=== PATIENT | female | born 1980 | race Caucasian/White ===

== ENCOUNTER 2019-10-29 15:15 | Emergency (ER) | payer OTHER, SELFPAY ==
[2019-10-29 15:26] VITALS: BP 139/96; PULSE 84; RESP 18; TEMP 36.6; O2SAT 98
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
[2019-10-29 16:00] LABS: Basophils Percent Auto 0.4 % (0.2-1.2); Eosinophils Absolute Auto 0.4 K/mm3 (0-0.3); Eosinophils Percent Auto 4.6 % (0-4.4); Hematocrit 41.5 % (37.0-47.0); Hemoglobin 13.3 g/dL (12.0-15.0); Immature Granulocyte Absolute 0.02 K/mm3 (0.00-0.031); Immature Granulocyte Percent A 0.2 % (0-0.5); Lymphocytes Absolute Auto 1.98 K/mm3 (0.9-3.2); Lymphocytes Percent Auto 24.5 % (18.3-44.2); Mean Corpuscular Hemoglobin 28.8 pg (26-34); Mean Corpuscular Volume 89.8 fl (80-100); Mean Platelet Volume 9.9 fl (7.4-10.4); Monocytes Absolute Auto 0.8 K/mm3 (0.1-0.6); Monocytes Percent Auto 9.3 % (2.6-8.5); Neutrophils Absolute Auto 4.9 K/mm3 (1.3-6.7); Platelet Count Result 303 k/mm3 (150-375); Red Blood Count 4.62 M/mm3 (4.2-5.4); Red Cell Distribution Width 14.7 % (11.5-14.5); White Blood Count 8.1 K/mm3 (4.5-10.0)
[2019-10-29 16:12] LABS: Alanine Aminotransferase 14 U/L (4-35); Albumin Level 4.3 g/dL (3.5-5.1); Alkaline Phosphatase 76 U/L (38-126); Aspartate Amino Transferase 28 U/L (14-36); Bilirubin,Total 0.3 mg/dL (0.2-1.3); Blood Urea Nitrogen 12 mg/dL (7-17); Calcium 9.2 mg/dL (8.4-10.2); Carbon Dioxide 29 mmol/L (22-30); Chloride 105 mmol/L (98-107); Estimated CRCL calculation 71 ml/min; Estimated Glomerular Filt Rate > 60; Ethanol < 10 mg/dL (<10); Glucose 83 mg/dL (65-105); Potassium 3.9 mmol/L (3.4-5.0); Sodium 139 mmol/L (137-145)
[2019-10-29 16:20] LABS: Add Urine Microscopic? YES; Appearance Urine Cloudy (Clear); Bilirubin Urine Negative (Negative); Blood Urine Negative (Negative); Color Urine Yellow (Yellow); Glucose Urine UA Negative (Negative); Ketones Urine Negative (Negative); Leukocyte Esterase Ur Trace LEU/UL (Negative); Mucus Urine Rare /lpf; Nitrate Urine Negative (Negative); Protein Urine Negative (Negative); Specific Grav Ur 1.017 (1.001-1.035); Squamous Epithelial Cell Urine Occasional /hpf (Few); Urobilinogen Urine Negative mg/dL (<2.0)
[2019-10-29] MEDS: SODIUM CHLORIDE 0.9% IV 1,000 ML 999 ML IV CONT (16:23)
[2019-10-29 16:27] LABS: Amphetamine Screen Urine Negative (Negative); Barbiturate Screen Urine Negative (Negative); Benzodiazepines Screen Urine Positive (Negative); Cannabinoid Screen Urine Positive (Negative); Cocaine Screen Urine Positive (Negative); Methadone Screen Urine Negative (Negative); Opiate Screen Urine Negative (Negative); Phencyclidine Screen Urine Negative (Negative)
[2019-10-29] MEDS: METOCLOPRAMIDE HCL INJ 10 MG/2 ML VIAL IV PUSH (16:27)
[2019-10-29] MEDS: KETOROLAC 30 MG/ML VIAL (*BKC) IV PUSH (16:29)
[2019-10-29 16:43] LABS: Thyroid Stimulating Hormone 0.978 uIU/mL (0.465-4.680)
--- NOTE | 2019-10-29 16:50 | PC.NURSE ---
Placed meal order at this time.
[2019-10-29 17:14] VITALS: TEMP 36.6
[2019-10-29 17:50] VITALS: BP 115/69; PULSE 62; RESP 18; O2SAT 100
[2019-10-29 20:51] VITALS: BP 118/67; PULSE 59; RESP 18; TEMP 36.5; O2SAT 98
--- NOTE | 2019-10-29 20:53 | PC.NURSE ---
Mary Jane/Radha, from [facility] calls to request more information and speak with the patient. She request to have an EKG done on the patient and the voluntary form filled out more. She also speaks with the patient at 2057 via the hallway phone. Patient walked back to the room. PA and MARLONP informed.
--- NOTE | 2019-10-29 21:04 | ECG_ITS ---
Measurements Intervals [place] Rate: 56 P: 27 OR: 159 QRS: 59 QRSD: 80 T: 54 QT: 475 QTc: 461 Interpretive Statements SINUS BRADYCARDIA BORDERLINE ECG Electronically Signed On 10-30-2019 7:48:11 CDT by Kalin Kelly D.O.
--- NOTE | 2019-10-29 21:31 | PC.NURSE ---
The requested paperwork faxed to [employer] at the provided fax number at this time.
--- NOTE | 2019-10-29 22:04 | PC.NURSE ---
Mary Jane at [facility] calls to inform this nurse that the patient has been accepted and gave the phone number to call nurse to nurse report as well as to get the physician name and and room number. The phone number was [phone]. EDP informed.
--- NOTE | 2019-10-29 22:10 | PC.NURSE ---
This nurse calls [phone] and speaks with SAMRA Booth to give nurse to nurse report. Leobardo also informs this nurse of patient's room number of [address] and that the accepting physician is . EDP and review specialist aware.
--- NOTE | 2019-10-29 22:23 | PC.NURSE ---
Addendum entered by Milagros Rivera 10/30/19 00:22: 2351: Called [facility] to transport. No trucks available. Addendum entered by Milagros Rivera 10/29/19 23:49: Called [facility] ... No trucks available after 9. Declined. Addendum entered by Milagros Rivera 10/29/19 23:42: Called [facility] for status...new ETA [id number] Original Note: Called [facility] to transport to [facility]. ETA [id number]
[2019-10-29] MEDS: NICOTINE (*PBKC) 21 MG PATCH 1 PATCH TRANSDERM (22:38)
[2019-10-29 23:58] VITALS: BP 120/67; PULSE 65; RESP 18; TEMP 36.7; O2SAT 98
[2019-10-30 02:11] VITALS: BP 126/76; PULSE 76; RESP 20; TEMP 36.7; O2SAT 100
== END 2019-10-30 02:10 ==
PROVIDERS: Physician Assistant; Emergency Provider Emergency Medicine
DX: F41.9 Anxiety disorder, unspecified (principal); F31.9 Bipolar disorder, unspecified; F17.200 Nicotine dependence, unspecified, uncomplicated; R00.1 Bradycardia, unspecified
CPT/HCPCS: 36415; 80053; 80307; 81001; 81025; 84443; 85025; 93005; 96365; 96375; 99285; A9270; J0131; J1200; J1885; J2765; J7030

== ENCOUNTER 2020-02-21 10:22 | Emergency (ER) | payer OTHER, SELFPAY ==
--- NOTE | ~2020-02-21 | XR_ITS ---
EXAMINATION: XR lumbar spine 2-3V DATE: 02/21/2020 11:03 INDICATION: Low back pain. TECHNIQUE: 3 views of lumbar spine were obtained. COMPARISON: None. FINDINGS: There is 4 degrees levocurvature of lumbar spine. Vertebral body heights are normal. There is mildly decreased disc height at L3-L4 and L4-L5. The facet joints are unremarkable. There is fixat ion of the sacroiliac joints with a screw with washer. IMPRESSION: 1. Mild lumbar spondylosis. 2. Screw fixation of the sacroiliac joints. Reviewed, dictated and finalized at location B.
[2020-02-21 10:28] VITALS: BP 116/78; PULSE 108; RESP 14; TEMP 36.1; O2SAT 97
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
[2020-02-21 11:35] VITALS: BP 104/64; PULSE 70; RESP 18; O2SAT 99
== END 2020-02-21 11:37 | disposition home or self-care (01) ==
PROVIDERS: Emergency Provider Emergency Medicine
DX: S39.012A Strain of muscle, fascia and tendon of lower back, initial encounter (principal); F17.210 Nicotine dependence, cigarettes, uncomplicated; F41.9 Anxiety disorder, unspecified; F31.9 Bipolar disorder, unspecified; X58.XXXA Exposure to other specified factors, initial encounter
CPT/HCPCS: 72100; 99283

== ENCOUNTER 2021-12-23 19:56 | Emergency (ER) | payer OTHER, SELFPAY ==
[2021-12-23 20:00] VITALS: BP 176/104; PULSE 98; RESP 20; TEMP 36.4; O2SAT 99
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
--- NOTE | 2021-12-23 21:10 | PC.NURSE ---
Ems here for pt. report given to ems. they walked pt out to ambulance. pt walked out with no incident.
== END 2021-12-23 21:10 | disposition short-term general hospital (02) ==
LOC: EXPCOLL 19:59
PROVIDERS: Emergency Provider Nurse Practitioner Family
DX: R45.851 Suicidal ideations (principal); F17.200 Nicotine dependence, unspecified, uncomplicated; M48.00 Spinal stenosis, site unspecified
CPT/HCPCS: 99212; G0463

== ENCOUNTER 2021-12-23 21:28 | Emergency (ER) | payer OTHER, SELFPAY ==
[2021-12-23 21:30] VITALS: BP 166/114; PULSE 75; RESP 18; TEMP 37; O2SAT 96
--- NOTE | 2021-12-23 21:45 | PC.NURSE ---
Pts valuables locked in secure area. Sitter at bedside due to elopement risk. Pt resting on stretcher, calm and cooperative. Lights dimmed.
--- NOTE | 2021-12-23 22:10 | ED.PSYCH ---
HPI - Psych General Chief Complaint: Psychiatric Symptoms Stated Complaint: SI, Hearing voices from - Time Seen by Provider: 12/23/21 21:30 History of Present Illness HPI Narrative: 41-year-old female presented emergency room via EMS from an urgent care for evaluation possible suicidal ideation. Patient states she has been experiencing vibration feeling in her lower extremities and hips has been present for 3 to 4 days. Patient states she was standing outside on the balcony of her apartment and thought about falling forward. Patient states that she went to urgent care related the story, and they voiced concern and had her come to the emergency room for further evaluation. Patient admits to a history of schizophrenia with auditory hallucinations and is currently not taking any medications. She was recently discharged from an inpatient psychiatric facility and was told to start taking Zyprexa. Patient has not started taking the Zyprexa at this time. Presently patient is denying any thoughts of self-harm or harm to others. Patient admits to occasional use of marijuana, methamphetamines, and cocaine. Related Data Home Medications Medication Instructions Recorded Confirmed No Home Medications 10/29/19 10/29/19 Allergies Allergy/AdvReac Type Severity Reaction Status Date / Time Penicillins Allergy Hives Verified 12/24/21 00:12 codeine AdvReac Unknown Nausea and Verified 12/24/21 00:12 Vomiting Review of Systems Review of Systems: CONSTITUTIONAL: Denies fever, chills, or sweats. EYES: Denies visual changes, redness, or discharge. ENT: Denies rhinorrhea, congestion, sore throat, or otalgia. CARDIOVASCULAR: Denies chest pain, palpitations, or edema. RESPIRATORY: Denies cough or dyspnea. GASTROINTESTINAL: Denies abdominal pain, nausea, vomiting, or diarrhea. GENITOURINARY: Denies dysuria or hematuria. SKIN: Denies rash or itching. MUSCULOSKELETAL: Denies back pain, joint pain, or myalgia. NEUROLOGIC: Denies headache, numbness, dizziness, or weakness. PSYCHIATRIC: Reports auditory hallucinations PMFSH Past Medical History Medical History History of anxiety History of bipolar disorder History of spinal stenosis Social History Social History Smoking status: Current every day smoker Substance use: never Substance use type: marijuana and methamphetamine Exam Narrative: GENERAL: Well-appearing, well-nourished, no physical limitations, and in no acute distress. HEAD: Normocephalic, atraumatic. EYES: Conjunctivae normal, PERRLA and EOMI. CHEST: Clear to auscultation. No respiratory distress. No wheezes rales or rhonchi. No tenderness. HEART: Regular rate and rhythm. No murmur heard. Normal peripheral pulses. SKIN: Warm, dry, no rash. No noted wounds NEURO: No focal deficits. Alert and oriented x3. MAEW. CN's II-XI intact bilaterally, normal gait PSYCH: Cooperative. Labile mood, flight of ideas, tangential Course Course Emergency Course: 2254: Patient is medically cleared and crisis has been paged. Vital Signs Vital signs: Vital Signs Temperature 37.0 C 12/23/21 21:30 Pulse Rate 75 12/23/21 21:30 Respiratory Rate 18 12/23/21 21:30 Blood Pressure 166/114 H 12/23/21 21:30 Pulse Oximetry 96 12/23/21 21:30 Oxygen Delivery Room Air 12/23/21 21:30 Temperature 37.0 C 12/23/21 21:30 Pulse Rate 75 12/23/21 21:30 Respiratory Rate 18 12/23/21 21:30 Blood Pressure 166/114 H 12/23/21 21:30 Pulse Oximetry 96 12/23/21 21:30 Oxygen Delivery Room Air 12/23/21 21:30 MDM - Psych Lab Data Result diagrams: 12/23/21 22:06 12/23/21 22:06 Labs: Lab Results 12/23/21 12/23/21 12/23/21 Range/Units 22:06 22:06 22:06 WBC 7.8 (4.5-10.0) K/mm3 RBC 4.69 (4.2-5.4) M/mm3 Hgb 12.8 (12.0-15.0) g/dL Hct 39.8 (37.0-47.0
[2021-12-23 22:16] LABS: Basophils Absolute Auto 0.1 K/mm3 (0.0-0.1); Basophils Percent Auto 0.8 % (0.2-1.2); Eosinophils Absolute Auto 0.4 K/mm3 (0-0.3); Eosinophils Percent Auto 5.3 % (0-4.4); Hematocrit 39.8 % (37.0-47.0); Hemoglobin 12.8 g/dL (12.0-15.0); Immature Granulocyte Absolute 0.01 K/mm3 (0.00-0.031); Immature Granulocyte Percent A 0.1 % (0-0.5); Lymphocytes Absolute Auto 2.04 K/mm3 (0.9-3.2); Lymphocytes Percent Auto 26.3 % (18.3-44.2); Mean Corpuscular HGB Conc 32.2 g/dl (32-36); Mean Corpuscular Hemoglobin 27.3 pg (26-34); Mean Corpuscular Volume 84.9 fl (80-100); Monocytes Absolute Auto 0.8 K/mm3 (0.1-0.6); Monocytes Percent Auto 10.6 % (2.6-8.5); Neutrophils Absolute Auto 4.4 K/mm3 (1.3-6.7); Neutrophils Percent Auto 56.9 % (45.5-73.1); Platelet Count Result 349 k/mm3 (150-375); Red Blood Count 4.69 M/mm3 (4.2-5.4); Red Cell Distribution Width 15.2 % (11.5-14.5); White Blood Count 7.8 K/mm3 (4.5-10.0)
[2021-12-23 22:21] LABS: Appearance Urine Slightly Cloudy (Clear); Bilirubin Urine Negative (Negative); Color Urine Yellow (Yellow); Glucose Urine UA Negative (Negative); Ketones Urine Negative (Negative); Leukocyte Esterase Ur Trace LEU/UL (Negative); Nitrate Urine Negative (Negative); Protein Urine Trace mg/dL (Negative); Specific Grav Ur 1.025 (1.001-1.035); Urobilinogen Urine 0.2 mg/dL (<2.0)
[2021-12-23 22:22] LABS: Add Urine Microscopic? YES; Blood Urine Trace-Intact (Negative)
[2021-12-23 22:24] LABS: Acetaminophen < 10 ug/mL (10-30); Ethanol < 10 mg/dL (<10); Salicylate < 1.0 mg/dL (2-20)
[2021-12-23 22:26] LABS: Alanine Aminotransferase 18 U/L (6-35); Albumin Level 4.4 g/dL (3.5-5.1); Alkaline Phosphatase 93 U/L (38-126); Anion Gap 3 mmol/L (8-16); Aspartate Amino Transferase 33 U/L (14-36); Bacteria Urine Trace /hpf; Bilirubin,Total 0.2 mg/dL (0.2-1.3); Blood Urea Nitrogen 9 mg/dL (7-17); Calcium Oxalate Crystals Urine Present /hpf; Carbon Dioxide 31 mmol/L (22-30); Chloride 106 mmol/L (98-107); Estimated CRCL calculation 79 ml/min; Estimated Glomerular Filt Rate > 60; Glucose 102 mg/dL (65-110); Mucus Urine Few /lpf; Potassium 3.1 mmol/L (3.4-5.0); Sodium 140 mmol/L (137-145); Squamous Epithelial Cell Urine Rare /hpf (Few); WBC Urine 0-3 /hpf
[2021-12-23 22:37] LABS: Barbiturate Screen Urine Negative (Negative); Benzodiazepines Screen Urine Negative (Negative)
[2021-12-23 22:44] LABS: Cannabinoid Screen Urine Positive (Negative); Cocaine Screen Urine Negative (Negative); Methadone Screen Urine Negative (Negative); Opiate Screen Urine Negative (Negative); Phencyclidine Screen Urine Negative (Negative)
[2021-12-23 22:55] LABS: Thyroid Stimulating Hormone 0.657 uIU/mL (0.465-4.680)
--- NOTE | 2021-12-23 22:56 | PC.NURSE ---
Pt medically cleared at 2254 by Lobo Dodson NP, primary nurse Lucie CABRALES made aware to call crisis for evaluation.
[2021-12-23 23:02] LABS: Amphetamine Screen Urine Positive (Negative)
--- NOTE | 2021-12-23 23:05 | PC.NURSE ---
Per metal wire technician Kristian at bedside, pt began hitting the side of her head with closed fists. Able to be redirected. Pt states Im trying to be okay . When this RN entered room, pt calm and eating sandwich. Requesting nicotine patch, TRANSIT OPERATOR Keen made aware.
--- NOTE | 2021-12-24 00:05 | PC.NURSE ---
Pt visibly restless on stretcher, shaking, stating she wants to leave. BRICK EXTRUDER OPERATOR notified. New orders placed.
[2021-12-24] MEDS: LORazepam (*CRX) 1 MG TABLET PO (00:12)
--- NOTE | 2021-12-24 01:33 | PC.NURSE ---
Per johnnie from crisis, plan to discharge pt with safety plan
[2021-12-24 02:33] VITALS: BP 164/111; PULSE 81; RESP 18; O2SAT 97
== END 2021-12-24 02:34 | disposition home or self-care (01) ==
PROVIDERS: Emergency Provider Nurse Practitioner Family
DX: R45.851 Suicidal ideations (principal); F41.9 Anxiety disorder, unspecified; F31.9 Bipolar disorder, unspecified; F17.200 Nicotine dependence, unspecified, uncomplicated
CPT/HCPCS: 36415; 80053; 80307; 81001; 81025; 84443; 85025; 99284; A9270

== ENCOUNTER 2022-01-13 14:10 | Emergency (ER) | payer OTHER, SELFPAY ==
[2022-01-13 14:21] VITALS: BP 150/85; PULSE 83; RESP 16; TEMP 36.9; O2SAT 100
--- NOTE | 2022-01-13 14:43 | ED.EYEPROB ---
HPI - Eye Problem General Chief complaint: Eye Problems Stated complaint: Eye Pain Time Seen by Provider: 01/13/22 14:43 Source: patient Mode of arrival: ambulatory Limitations: no limitations History of Present Illness HPI Narrative: 41 y/o female presented for c/o left eye redness and drainage for at least 3 days. Removed contact lens today, stating she is homeless and cannot clean the contact lenses like she should and wore it continuously for 3 days. Denies significant pain, itching or foreign body sensation. Endorses photophobia. MD chief complaint: eye pain Related Data Allergies Allergy/AdvReac Type Severity Reaction Status Date / Time Penicillins Allergy Hives Verified 01/13/22 14:23 codeine AdvReac Unknown Nausea and Verified 01/13/22 14:23 Vomiting Review of Systems Review of Systems: CONSTITUTIONAL: Denies body aches, fever, chills EYES:Endorses redness and drainage left eye; denies FB sensation, Denies visual changes ENT: Denies rhinorrhea, congestion, sore throat, or otalgia. SKIN: Denies rash, itching, or wounds. MUSCULOSKELETAL: Denies back pain, joint pain, or myalgia. NEUROLOGIC: Denies headache, numbness, tingling, or weakness. All systems reviewed & are unremarkable except as noted in HPI and below PMFSH Past Medical History Medical History History of anxiety History of bipolar disorder History of spinal stenosis Social History Social History Smoking status: Current every day smoker Substance use: never Substance use type: marijuana and methamphetamine Comments At time of signature, I have reviewed and agree with nursing past medical, surgical, social and family history unless otherwise noted. Please see nursing chart for further information. There is no relevant family history pertinent to the presenting complaint Exam Narrative: GENERAL: Well-appearing HEAD: Normocephalic, atraumatic. EYES: left conjunctival injection, no eye lid swelling; EOMI. Lid eversion showed no FB ENT: Mucous membranes pink and moist. No rhinorrhea. CHEST: Clear to auscultation. HEART: Regular rate and rhythm. ABDOMEN: Soft, nontender, nondistended SKIN: Warm, dry, no rash. Normal skin turgor. NEURO: No focal deficits. Alert and oriented x3 PSYCH: Admits to actively hear voices Course Course Emergency Course: Patient is aware of diagnosis, understands and agrees to treatment plan. Anticipatory guidance given. Patient agrees to follow-up as directed and is aware of reasons to seek care at the emergency department. Portions of this record may have been created with voice recognition software Level of Care: Express Care Visit Vital Signs Vital signs: Vital Signs Temperature 98.4 F 01/13/22 14:21 Pulse Rate 83 01/13/22 14:21 Respiratory Rate 16 01/13/22 14:21 Blood Pressure 150/85 H 01/13/22 14:21 Pulse Oximetry 100 01/13/22 14:21 Oxygen Delivery Room Air 01/13/22 14:21 Temperature 98.4 F 01/13/22 14:21 Pulse Rate 83 01/13/22 14:21 Respiratory Rate 16 01/13/22 14:21 Blood Pressure 150/85 H 01/13/22 14:21 Pulse Oximetry 100 01/13/22 14:21 Oxygen Delivery Room Air 01/13/22 14:21 MDM - Eye Problem MDM Narrative Medical decision making narrative: Left conjunctival injection. Advised supportive measures for conjunctivitis and signs/symptoms to go to the ER. Pt is appropriate for outpt treatment and f/u. Differential Diagnosis Differential diagnosis: Likely corneal abrasion, conjunctivitis, acute iritis and other Discharge Plan Discharge Clinical Impression: Bacterial conjunctivitis Patient Disposition: Home, Self-Care Condition: Stable Instructions: Antibiotic Form, Conjunctivitis (ED) Additional Instructions: Use antibiotic eyedrops as directed - you are contagious for 24 hours after starting the antibiotic A
== END 2022-01-13 15:10 | disposition home or self-care (01) ==
PROVIDERS: Emergency Provider Nurse Practitioner Family
DX: H10.9 Unspecified conjunctivitis (principal); F17.200 Nicotine dependence, unspecified, uncomplicated; M48.00 Spinal stenosis, site unspecified
CPT/HCPCS: 99213; G0463